=== PATIENT | male | born 1985 | race Caucasian/White ===

== ENCOUNTER 2020-12-03 04:03 | Outpatient (CLI) | payer SELFPAY ==
--- NOTE | 2020-12-03 09:30 | RT.EKG_ITS ---
APPROVED REPORT Exam: Resting ECG Patient Location: O HR:51 bpm ECG Measurements Heart Rate 51 AXIS MD 155 P 3 QRSd 95 QRS 66 QT 487 T 24 QTc 449 Conclusion Sinus bradycardia...rate< 60 Probable left ventricular hypertrophy...multiple LVH criteria
== END 2020-12-03 04:04 | disposition home or self-care (01) ==
PROVIDERS: Visit Provider Family Medicine
DX: Z79.899 Other long term (current) drug therapy (principal); R00.1 Bradycardia, unspecified
CPT/HCPCS: 93005; 93010